=== PATIENT | male | born 2000 | race American Indian/Alaskan Native ===

== ENCOUNTER 2022-01-10 07:52 | Emergency (ER) | payer SELFPAY ==
[2022-01-10 08:35] VITALS: BP 139/67
--- NOTE | 2022-01-10 08:55 | XRay Report ---
CHEST 2 VIEWS INDICATION / CLINICAL INFORMATION: couging up blood. COMPARISON: None available. FINDINGS: SUPPORT DEVICES: None. HEART / MEDIASTINUM: No significant abnormality. LUNGS / PLEURA: No significant pulmonary or pleural abnormality. No pneumothorax. ADDITIONAL FINDINGS: No significant additional findings. IMPRESSION: 1. No acute findings. Signer Name: Darinel Batres MD Signed: 01/10/2022 8:51 AM Workstation Name: [id number]
== END 2022-01-10 23:00 | disposition left against medical advice (07) ==
LOC: ED 07:52
DX: R05.9 Cough, unspecified (principal); Z53.21 Procedure and treatment not carried out due to patient leaving prior to being seen by health care provider
CPT/HCPCS: 71046